=== PATIENT | male | born 1995 | race Caucasian/White ===

== ENCOUNTER 2017-05-28 17:27 | Emergency (ER) | payer OTHER ==
[~2017-05-28] VITALS: Ht 180.3 cm; Wt 75.9 kg
[2017-05-28 17:29] VITALS: BP 108/73; TEMP 97
[2017-05-28 19:49] VITALS: PULSE 86
== END 2017-05-28 19:46 | disposition home or self-care (01) ==
LOC: COL.ER 17:27
DX: S31.811A Laceration without foreign body of right buttock, initial encounter (principal); W22.8XXA Striking against or struck by other objects, initial encounter; Y92.002 Bathroom of unspecified non-institutional (private) residence as the place of occurrence of the external cause